=== PATIENT | male | born 1980 | race Caucasian/White ===

== ENCOUNTER 2018-09-02 13:08 | Emergency (ER) | payer OTHER ==
[~2018-09-02] VITALS: Ht 177.8 cm; Wt 64.0 kg
--- NOTE | 2018-09-02 13:10 | NUR ---
Pt presents to ED via EMS s/p witnessed seizure while walking in a parking lot. Pt reportedly was walking, tensed up and fell to the ground and hit the back of his head. There is a small abrasion to the left posterior head. Pt apparently came to right away but was only oriented x2. Pt is currently oriented x3, does not know the date. Pt seen by ERP. Head CT to be ordered. VSS. Pt denies pain at this time. Seizure pads applied to gurney, suction available at bedside.
[2018-09-02] MEDS ORDERED: L.E.T SOLUTION TP ONE (13:30)
[2018-09-02 13:35] LABS: BASOPHILS # (AUTO) 0.04 x10^3/uL (0-0.1); BASOPHILS % (AUTO) 0 % (0-1); EOSINOPHILS # (AUTO) 0.01 x10^3/uL (0-0.4); EOSINOPHILS % (AUTO) 0 % (1-7); LYMPHOCYTES # (AUTO) 0.93 x10^3/uL (1-3.4); LYMPHOCYTES % (AUTO) 9 % (22-44); MD NO; MEAN CORPUSCULAR HEMOGLOBIN 36.6 pg (27.5-34.5); MEAN CORPUSCULAR HGB CONC 34.4 g/dL (33.2-36.2); MEAN CORPUSCULAR VOLUME 106.2 fL (81-97); MONOCYTES # (AUTO) 0.53 x10^3/uL (0.2-0.8); MONOCYTES % (AUTO) 5 % (2-9); NEUTROPHILS # (AUTO) 8.84 x10^3/uL (1.8-6.8); NEUTROPHILS % (AUTO) 86 % (42-75); PLATELET COUNT 271 x10^3/uL (130-400); RED BLOOD COUNT 3.67 x10^6/uL (4.38-5.82)
[2018-09-02 13:45] LABS: ALBUMIN 3.3 g/dL (3.4-5.0); ANION GAP 11 mmol/L (5-15); CALCIUM 8.9 mg/dL (8.5-10.1); CHLORIDE 100 mmol/L (98-107); CREATININE 0.89 mg/dL (0.7-1.3)
[2018-09-02] MEDS ORDERED: POTASSIUM CHLORIDE 20 MEQ TAB.ER.PRT PO ONE (14:00)
[2018-09-02 14:27] VITALS: BP 118/78
--- NOTE | 2018-09-02 14:27 | NUR ---
pt resting in room. vss. awaiting dispo.
== END 2018-09-02 14:54 | disposition home or self-care (01) ==
LOC: ED 14:48
DX: S01.03XA Puncture wound without foreign body of scalp, initial encounter (principal); R56.9 Unspecified convulsions; F10.220 Alcohol dependence with intoxication, uncomplicated; E87.6 Hypokalemia; W19.XXXA Unspecified fall, initial encounter; Y93.89 Activity, other specified; Y92.89 Other specified places as the place of occurrence of the external cause; Y99.8 Other external cause status
CPT/HCPCS: 36415; 70450; 80048; 80307; 82040; 85025; 93005; 99284